=== PATIENT | female | born 1980 ===

== ENCOUNTER 2016-10-21 19:42 | Emergency (ER) | payer SELFPAY ==
[~2016-10-21] VITALS: Ht 152.4 cm; Wt 60.5 kg
[2016-10-21 19:45] VITALS: Ht 152.4 cm; Wt 60.5 kg
[2016-10-21] MEDS ORDERED: CYCL-319 PO (21:36)
[2016-10-21] MEDS ORDERED: IBUP-1542 PO (21:36)
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
== END 2016-10-21 22:20 | disposition home or self-care (01) ==
LOC: FTE 19:42
DX: M62.838 Other muscle spasm (principal); V89.2XXA Person injured in unspecified motor-vehicle accident, traffic, initial encounter
CPT/HCPCS: 99283